=== PATIENT | male | born 1945 | race Caucasian/White ===

== ENCOUNTER 2017-08-10 14:53 | Inpatient (IN) | payer MEDICARE, BC ==
[2017-08-10] MEDS ORDERED: Enoxaparin Sodium 30 MG/0.3 ML SYRINGE ONE (15:40)
[2017-08-10] MEDS ORDERED: Enoxaparin Sodium 100 MG/ML SYRINGE ONE (15:40)
[2017-08-10] MEDS ORDERED: Acetaminophen 325 MG TAB PO PRN (16:01)
[2017-08-10] MEDS ORDERED: Ondansetron HCl/PF 4 MG/2 ML Vial IVP PRN (16:01)
[2017-08-10] MEDS ORDERED: Nitroglycerin 0.4 MG TAB (25 Tab Bottle) PO PRN (16:01)
[2017-08-10] MEDS ORDERED: Ondansetron ODT 4 MG TAB PO PRN (16:01)
[2017-08-10 16:17] LABS: Troponin I 2.615 ng/mL (< 0.028)
[2017-08-10 19:29] LABS: Critical Call Chem Troponin I RESULT DECREASING; Troponin I 2.559 ng/mL (< 0.028)
[2017-08-10] MEDS: Famotidine 20 MG TAB PO SCH (20:39)
[2017-08-10] MEDS: Sodium Chloride 0.9% 1,000 ML IV SCH (20:39)
[2017-08-10] MEDS: Oseltamivir 75 MG CAP PO SCH (20:40)
[2017-08-10 21:18] VITALS: BMI 35.1
[2017-08-11] MEDS ORDERED: Diabetic Tussin 200 MG/10 ML UDCUP PO SCH (04:30)
[2017-08-11 06:05] LABS: Anion Gap 14 mmol/L (10-20); BUN (Urea Nitrogen) 18 mg/dL (8.4-25.7); Calc. Creatinine Clearance 118 mL/min (70-130); Carbon Dioxide 20 mmol/L (23-31); Chloride 104 mmol/L (98-107); Estimated GFR-MDRD 80; Glucose 108 mg/dL (83-110); Potassium 3.6 mmol/L (3.5-5.1); Sodium 134 mmol/L (136-145)
--- NOTE | 2017-08-11 06:51 | HP ---
CHIEF COMPLAINT: Generalized body weakness. HISTORY OF PRESENT ILLNESS: This is a 72-year-old gentleman, who is a very poor historian, presenting here with 2 to 3 days history of generalized body weakness to the point where he was having some difficulty getting into his vehicle. The patient did have some cough with productive sputum. Denies any sick contact. The patient presented to ER, where the initial evaluation did reveal patient has influenza. The patient denies most recent x-rays, further investigation was reviewed, elevated troponin at 3.6. Based on all these findings, decision made to admit this patient for further cardiac workup as well as flu treatment. PAST MEDICAL HISTORY: The patient claim not to have any medical history. The patient seems to be having some Afib FAMILY HISTORY: not significantly related to the presenting illness_ SOCIAL HISTORY: No alcohol, no tobacco, no illicit drug use. PHYSICAL EXAMINATION: GENERAL: On examination today, the patient was found not to be in any respiratory distress and noted with the following vital signs. VITAL SIGNS: Temperature 100.4, pulse 89, respiratory rate 20, O2 sat 93% with blood pressure 152/72. HEENT: Unremarkable with moist oral mucosa. NECK: Supple. CARDIOVASCULAR: First and second heart sounds were heard. DIGESTIVE: Revealed a benign abdomen with positive bowel sounds LYMPHATICS: No peripheral lymphadenopathy. IMPRESSION 1 Influenza 2-Afib PLAN: 1. The patient has been admitted to the telemetry. 2. Cardiac enzyme evaluation. 3. Cardiology consultation. 4. Tamiflu treatment for the treatment of flu. 5. Further management to be dependent on the clinical course. [facility]
[2017-08-11 07:09] LABS: Band 3 % (5-11); Eosinophils 1 % (0-10); Hemoglobin 14.1 g/dL (14.0-18.0); Lymphocytes 6 % (21-51); MDiff Complete? YES; Mean Corpuscular HGB CONC 34.4 g/dL (32.0-36.0); Mean Corpuscular Hemoglobin 34.1 pg (27.0-31.0); Mean Platelet Volume 8.7 fL (7.4-10.4); Monocytes 5 % (0-10); Neutrophil 85 % (42-75); Platelet Count 138 thou/uL (130-400); RBC Distribution Width 12.2 % (11.5-14.5); Red Blood Cell (RBC) Count 4.14 mill/uL (4.70-6.10); White Blood Cell (WBC) Count 6.1 thou/uL (4.8-10.8)
[2017-08-11] MEDS: Famotidine 20 MG TAB PO SCH ×2 (08:55→21:18)
[2017-08-11] MEDS: Oseltamivir 75 MG CAP PO SCH ×2 (08:55→21:18)
[2017-08-11] MEDS: Aspirin 325 MG TAB PO SCH (08:55)
[2017-08-11] MEDS: Sodium Chloride 0.9% 1,000 ML IV SCH ×2 (08:56→21:20)
[2017-08-11] MEDS ORDERED: Enoxaparin Sodium 40 MG/0.4 ML SYRINGE SC SCH (09:00)
[2017-08-11] MEDS ORDERED: Prevnar 13-Val Conj/PF 0.5 ML SYRINGE IM ONE (09:00)
--- NOTE | 2017-08-11 15:48 | EKG ---
Test Reason : Blood Pressure : / mmHG Vent. Rate : 093 BPM Atrial Rate : 127 BPM P-R Int : 000 ms QRS Dur : 140 ms QT Int : 418 ms P-R-T Axes : 000 054 024 degrees QTc Int : 519 ms Atrial fibrillation Right bundle branch block Abnormal ECG Confirmed by HUEY IVERSON MD ([id number]), newspaper managing editor ANDREW PARIS ([id number]) on 08/11/2017 3:47:58 PM Referred By: Confirmed By:HUEY IVERSON MD
--- NOTE | 2017-08-11 17:42 | PDOC.PN ---
- Subjective Encounter Start Date: 08/11/17 Encounter Start Time: 17:40 Subjective: Seen and examined feeling better c/o his sinusitis - Objective Vital Signs & Weight: Vital Signs (12 hours) Temp Pulse Resp BP Pulse Ox 08/11/17 15:45 99.0 F 74 18 110/71 93 L 08/11/17 12:20 97.9 F 85 16 113/65 91 L 08/11/17 08:53 100.7 F H 73 18 132/65 92 L Weight Weight 259 lb I&O: 08/10/17 08/11/17 08/12/17 06:59 06:59 06:59 Intake Total 840 1143 Output Total 850 800 Balance -10 343 Result Diagrams: 08/11/17 04:02 08/11/17 04:02 Phys Exam - Physical Examination Constitutional: NAD HEENT: PERRLA, moist MMs, sclera anicteric, TM's clear Neck: no nodes, no JVD, supple, full ROM Respiratory: no wheezing, no rales, no rhonchi, clear to auscultation bilateral Cardiovascular: RRR, no significant murmur, no rub Gastrointestinal: soft, non-tender, no distention, positive bowel sounds Musculoskeletal: no edema, pulses present Dx/Plan (1) Influenza A Code(s): J10.1 - FLU DUE TO OTH IDENT INFLUENZA VIRUS W OTH RESP MANIFEST Status: Acute (2) Paroxysmal A-fib Code(s): I48.0 - PAROXYSMAL ATRIAL FIBRILLATION Status: Acute (3) Sinusitis Code(s): J32.9 - CHRONIC SINUSITIS, UNSPECIFIED Status: Acute - Plan plan discussed w/ family, PT/OT, social sciences research scientist, respiratory therapy Awaiting Cardiology eval -: Dispo planning * .
--- NOTE | 2017-08-11 18:21 | CON ---
DATE OF CONSULTATION: 08/11/2017 The patient is a 72-year-old gentleman who presented for evaluation of weakness and was noted to have abnormal cardiac enzymes. The patient has no previous cardiac history. He states that a few days ago he had a fall in his tractor. He subsequently developed weakness and felt lightheaded. The patient reported having myalgias. The patient denied having any fever or chills. The patient denied having any chest discomfort. PAST MEDICAL HISTORY: None PAST SURGICAL HISTORY: Hand surgery. SOCIAL HISTORY: He is a nonsmoker. FAMILY HISTORY: There is a positive family history of heart disease. Father had a myocardial infarction. MEDICATIONS: None ALLERGIES: No known drug allergies. REVIEW OF SYSTEMS: Ten-point system otherwise unremarkable. No history of easy bruising or bleeding, bright red blood per rectum, hematuria. PHYSICAL EXAMINATION: GENERAL: Obese gentleman in no acute distress with a blood pressure of 113/65. NECK: No jugular venous distention. LUNGS: Coarse breath sounds bilateral. HEART: Regular rate and rhythm, normal S1, S2. ABDOMEN: Distended. EXTREMITIES: Showed mild edema. SKIN: Warm and dry. NEUROLOGIC: Nonfocal. VASCULAR: Radial pulses are 2+. LABORATORY: Sodium 134, potassium 3.6, chloride 104, bicarbonate 20, BUN 18, creatinine 0.93, glucose is 108. CPK-MB is 2.559. White blood cell count 6.1, hemoglobin 14.1, hematocrit 41.0 and his platelets are 138. His EKG reveals him to have normal sinus rhythm with a right bundle branch block. IMPRESSION: 1. Non-Q-wave myocardial infarction. 2. Influenza. 3. Obesity. PLAN: This gentleman presents with a non-Q-wave myocardial infarction. This may be secondary to demand ischemia. The patient will need to undergo further evaluation including possible stress testing or an invasive evaluation at this time. The patient will be treated with aspirin, Lovenox, beta jame, and lipid lowering medication. We will check the patient's echocardiogram. VICKY
[2017-08-11] MEDS ORDERED: Cetirizine HCl 10 MG TAB PO SCH (21:00)
[2017-08-11] MEDS ORDERED: Metoprolol Tartrate 25 MG TAB PO SCH (21:00)
[2017-08-11] MEDS: Loratadine 10 MG TAB PO SCH (21:17)
[2017-08-11] MEDS: Atorvastatin Calcium 40 MG TAB PO SCH (21:18)
[2017-08-11] MEDS: Enoxaparin Sodium 120 MG/0.8 ML SYRINGE SC SCH (21:18)
[2017-08-11 22:24] LABS: Hemoglobin 13.2 g/dL (14.0-18.0); Platelet Count 138 thou/uL (130-400)
--- NOTE | 2017-08-12 07:33 | PDOC.PN ---
- Subjective Encounter Start Date: 08/12/17 Encounter Start Time: 07:31 Subjective: Seen and examined feeling better - Objective Vital Signs & Weight: Vital Signs (12 hours) Temp Pulse Resp BP Pulse Ox 08/12/17 04:00 98.7 F 72 20 128/60 96 08/11/17 20:30 99.4 F 76 18 92 L Weight Weight 261 lb I&O: 08/11/17 08/12/17 08/13/17 06:59 06:59 06:59 Intake Total 840 2403 Output Total 850 1700 Balance -10 703 Result Diagrams: 08/11/17 22:16 08/11/17 22:16 Phys Exam - Physical Examination Constitutional: NAD HEENT: PERRLA, moist MMs, sclera anicteric, TM's clear, oral pharynx no lesions Neck: no nodes, no JVD, supple, full ROM Respiratory: no wheezing, no rales, no rhonchi, clear to auscultation bilateral Cardiovascular: RRR, no significant murmur, no rub Gastrointestinal: soft, non-tender, no distention, positive bowel sounds Musculoskeletal: no edema, pulses present Dx/Plan (1) Influenza A Code(s): J10.1 - FLU DUE TO OTH IDENT INFLUENZA VIRUS W OTH RESP MANIFEST Status: Acute (2) Paroxysmal A-fib Code(s): I48.0 - PAROXYSMAL ATRIAL FIBRILLATION Status: Acute (3) Sinusitis Code(s): J32.9 - CHRONIC SINUSITIS, UNSPECIFIED Status: Acute (4) Non Q wave myocardial infarction Code(s): I21.4 - NON-ST ELEVATION (NSTEMI) MYOCARDIAL INFARCTION Status: Acute - Plan plan discussed w/ family, continue antibiotics, PT/OT, medical social consultant, respiratory therapy Cardiology yet to decide between stress test vs cath -: Continue Tamiflu -: D/c ivf -: Dispo planning depending on the cardiology decision * .
[2017-08-12] MEDS ORDERED: Enoxaparin Sodium 120 MG/0.8 ML SYRINGE SC SCH (09:00)
[2017-08-12] MEDS: Aspirin 325 MG TAB PO SCH (09:05)
[2017-08-12] MEDS: Famotidine 20 MG TAB PO SCH ×2 (09:06→20:01)
[2017-08-12] MEDS: Oseltamivir 75 MG CAP PO SCH ×2 (09:06→20:01)
[2017-08-12] MEDS ORDERED: Communication Order-Pharmacy FS SCH (09:15)
[2017-08-12] MEDS: Enoxaparin Sodium 120 MG/0.8 ML SYRINGE SC SCH (09:42)
[2017-08-12] MEDS ORDERED: Enoxaparin Sodium 40 MG/0.4 ML SYRINGE SC SCH (09:45)
[2017-08-12] MEDS: Carvedilol 3.125 MG TAB PO SCH (17:51)
[2017-08-12] MEDS: Atorvastatin Calcium 40 MG TAB PO SCH (20:00)
[2017-08-12] MEDS: Loratadine 10 MG TAB PO SCH (20:01)
[2017-08-13] MEDS: Carvedilol 3.125 MG TAB PO SCH ×2 (05:09→17:43)
[2017-08-13] MEDS: Oseltamivir 75 MG CAP PO SCH ×2 (05:09→21:46)
[2017-08-13] MEDS: Famotidine 20 MG TAB PO SCH ×2 (05:09→21:46)
[2017-08-13] MEDS: Aspirin 325 MG TAB PO SCH (05:09)
[2017-08-13] MEDS ORDERED: Midazolam HCl 2 mg/2 ml Vial ONE ×2 (07:16→08:17)
[2017-08-13] MEDS ORDERED: Acetaminophen/Codeine 30-300mg Tablet PO PRN ×2 (07:44)
[2017-08-13] MEDS ORDERED: Nitroglycerin 0.4 MG TAB (25 Tab Bottle) SL PRN (07:44)
[2017-08-13] MEDS ORDERED: traMADol HCl 50 MG TAB PO PRN (07:44)
[2017-08-13] MEDS ORDERED: Sodium Chloride 0.9% 200 ML IV PRN (07:45)
[2017-08-13] MEDS ORDERED: Fentanyl 100 MCG/2 ML VIAL ONE (07:55)
[2017-08-13] MEDS ORDERED: Heparin 10,000 UNITS/1 ML VIAL ONE (08:17)
[2017-08-13] MEDS ORDERED: Clopidogrel Bisulfate 300 MG TAB ONE (08:59)
[2017-08-13] MEDS ORDERED: Nitroglycerin 100MG/250ML BOT 250 ML ONE (08:59)
[2017-08-13] MEDS ORDERED: Enoxaparin Sodium 40 MG/0.4 ML SYRINGE SC SCH (09:00)
--- NOTE | 2017-08-13 13:43 | PDOC.PN ---
- Subjective Encounter Start Date: 08/13/17 Encounter Start Time: 13:41 Subjective: Seen and examined with no new complaint - Objective Vital Signs & Weight: Vital Signs (12 hours) Temp Pulse Resp BP BP Pulse Ox 08/13/17 05:09 145/75 H 08/13/17 04:00 97.6 F 69 18 112/76 96 Weight Weight 257 lb I&O: 08/12/17 08/13/17 08/14/17 06:59 06:59 06:59 Intake Total 2403 1680 Output Total 1700 775 Balance 703 905 Result Diagrams: 08/11/17 22:16 08/11/17 22:16 Phys Exam - Physical Examination Constitutional: NAD HEENT: PERRLA, moist MMs, sclera anicteric, TM's clear Neck: no nodes, no JVD, supple, full ROM Respiratory: no wheezing, no rales, no rhonchi, clear to auscultation bilateral Cardiovascular: RRR, no significant murmur, no rub Gastrointestinal: soft, non-tender, no distention, positive bowel sounds Dx/Plan (1) Influenza A Code(s): J10.1 - FLU DUE TO OTH IDENT INFLUENZA VIRUS W OTH RESP MANIFEST Status: Acute (2) Paroxysmal A-fib Code(s): I48.0 - PAROXYSMAL ATRIAL FIBRILLATION Status: Acute (3) Sinusitis Code(s): J32.9 - CHRONIC SINUSITIS, UNSPECIFIED Status: Acute (4) Non Q wave myocardial infarction Code(s): I21.4 - NON-ST ELEVATION (NSTEMI) MYOCARDIAL INFARCTION Status: Acute - Plan plan discussed w/ family, continue antibiotics, home health care social worker Cardiac catherisation today -: Disposition will be dependent on the cath result * .
[2017-08-13] MEDS: Guaifenesin DM 100-10/5 ML UDCUP PO PRN (14:40)
[2017-08-13] MEDS ORDERED: Iopamidol 370 76% 50 ML VIAL FS ONE (17:22)
[2017-08-13] MEDS ORDERED: Iopamidol 370 76% 100 ML VIAL ONE (17:22)
[2017-08-13] MEDS: Atorvastatin Calcium 40 MG TAB PO SCH (21:45)
[2017-08-13] MEDS: Loratadine 10 MG TAB PO SCH (21:46)
[2017-08-13 22:39] LABS: Hemoglobin 12.4 g/dL (14.0-18.0); Platelet Count 131 thou/uL (130-400)
[2017-08-14] MEDS: Carvedilol 3.125 MG TAB PO SCH (08:01)
[2017-08-14] MEDS: Famotidine 20 MG TAB PO SCH (08:01)
[2017-08-14] MEDS: Oseltamivir 75 MG CAP PO SCH (08:01)
[2017-08-14] MEDS ORDERED: Clopidogrel Bisulfate 75 MG TAB PO SCH (09:00)
[2017-08-14] MEDS: Guaifenesin DM 100-10/5 ML UDCUP PO PRN (09:15)
[2017-08-14 12:34] VITALS: TEMP 98
[2017-08-14 16:36] VITALS: BP 133/61
[2017-08-14] MEDS ORDERED: Carvedilol 6.25 MG TAB PO SCH (17:00)
[2017-08-14] MEDS ORDERED: Ramipril 5 MG CAP PO SCH (21:00)
== END 2017-08-14 16:23 | disposition home or self-care (01) | DRG 247 ==
LOC: ERS 14:53 → ERHOLD 16:10 → 2NO 20:22
PROVIDERS: ADMIT Internal Medicine Nephrology; ATTEND Internal Medicine Nephrology
PROC: 027036Z Dilation of Coronary Artery, One Artery with Three Drug-eluting Intraluminal Devices, Percutaneous Approach (ICD-10-PCS; principal; 2017-08-13)
PROC: 4A023N7 Measurement of Cardiac Sampling and Pressure, Left Heart, Percutaneous Approach (ICD-10-PCS; 2017-08-13)
PROC: B2111ZZ Fluoroscopy of Multiple Coronary Arteries using Low Osmolar Contrast (ICD-10-PCS; 2017-08-13)
PROC: B2151ZZ Fluoroscopy of Left Heart using Low Osmolar Contrast (ICD-10-PCS; 2017-08-13)
DX: I21.4 Non-ST elevation (NSTEMI) myocardial infarction (principal); I48.0 Paroxysmal atrial fibrillation; J10.1 Influenza due to other identified influenza virus with other respiratory manifestations; E66.9 Obesity, unspecified; Z68.35 Body mass index [BMI] 35.0-35.9, adult; I25.10 Atherosclerotic heart disease of native coronary artery without angina pectoris
CPT/HCPCS: 36415; 80048; 82565; 85014; 85018; 85025; 85049; 85347; 92928; 93005; 93010; 93306; 93458; 93798; 94760; 96372; 99152; C1725; C1769; C1874; C9600; J1644; J1650; J2250; J3010; Q0162

== ENCOUNTER 2017-11-01 10:37 | Day surgery (SDC) | payer MEDICARE, BC ==
[2017-10-31 15:50] VITALS: BMI 35.5
[2017-11-01] MEDS ORDERED: Ketamine 50 MG/ML VIAL ONE (14:00)
[2017-11-01] MEDS ORDERED: PHENYLEPHRINE-NS 100 MCG/ML 10 ML SYRINGE ONE (14:07)
[2017-11-01] MEDS ORDERED: PROPOFOL 200 MG/20 ML VIAL ONE (14:07)
--- NOTE | 2017-11-01 15:38 | ECHO ---
TRANSESOPHAGEAL ECHOCARDIOGRAM: DATE OF PROCEDURE: 11/01/17 INDICATION: 72-year-old gentleman with paroxysmal atrial fibrillation. DESCRIPTION OF PROCEDURE: The patient was taken to the PACU. The patient was sedated by anesthesiology. A transesophageal probe was placed in the distal esophagus and stomach. Echocardiographic images were obtained. The transesophageal probe was removed. FINDINGS: 1. Mild decrease in left systolic function. 2. Biatrial enlargement. 3. Mild mitral regurgitation. 4. Mild tricuspid regurgitation. 5. No thrombus noted in left atrial appendage. 6. Atherosclerotic debris in the descending. IMPRESSION: No formed thrombus in left atrial appendage.
--- NOTE | 2017-11-01 16:35 | OP ---
PROCEDURE: Electrical cardioversion. HISTORY OF PRESENT ILLNESS: A 72-year-old gentleman with paroxysmal atrial fibrillation. DESCRIPTION OF PROCEDURE: The patient was taken to the PACU, the patient was sedated by Anesthesiyvonne fofana. The patient was shocked with 200 joules of synchronized electricity. The patient converted to n ormal sinus rhythm. IMPRESSION: Successful electrocardioversion.
--- NOTE | 2017-11-01 21:02 | CON ---
DATE OF CONSULTATION: 11/01/2017 REASON FOR CONSULTATION: Atrial fibrillation. PHYSICIAN REQUESTING CONSULTATION: Renan Euceda M.D. HISTORY OF PRESENT ILLNESS: Eduar Fernádnez is a 72-year-old gentleman. He has a known history of cor onary disease, moderate cardiomyopathy with ejection fraction of 30%, previous myocardial infarction and coronary arterial disease status post stent placement in August. He was brought in electively f or a VIVIEN and cardioversion. He was found to be in atrial fibrillation yesterday. I was asked to see him because of his comorbidities making long-term antiarrhythmic suppression suboptimal. He is not acutely aware of his atrial fibrillation, although it is unclear how long he has been out of rhythm l ikely would have been less than 3 months since this would have likely been identified during his sten t placement in August. CURRENT MEDICATIONS: Aspirin 81 mg a day, amantadine 200 mg every day, carvedilol 6.25 mg b.i.d., cl opidogrel 75 mg every day, ramipril 5 mg every day, atorvastatin 80 mg every day, Eliquis 5 mg b.i.d. ALLERGIES: He has no known drug allergies. FAMILY HISTORY: Significant for possible stroke and hypertension. SOCIAL HISTORY: The patient does not smoke, drink heavily, or use illicit drugs. He lives just outs [facility], [place] the [place], [place]. REVIEW OF SYSTEMS: The following complete review of systems was negative, unless otherwise mentioned in the HPI or below: Constitutional: Weight loss or gain, sense of well-being, ability to conduct usual activities, exerc ise tolerance. Skin/Breast: Rash, itching, changes in hair growth or loss, nail changes, breast lumps, tenderness, swelling, nipple discharge. Eyes: Vision, double vision, tearing, blind spots, pain. ENT/Mouth: Headaches (location, time of onset, duration, precipitating factors), vertigo, lightheadedness, injury. Vision, double vision, tearing, blind spots, pain, nose b leeding, colds, obstruction, discharge, dental difficulties, gingival bleeding, dentures, neck stiffn ess, pain, tenderness, masses in thyroid or other areas Cardiovascular: Precordial pain, substernal distress, palpitations, syncope, dyspnea on exertion, or thopnea, nocturnal paroxysmal dyspnea, edema, cyanosis, hypertension, heart murmurs, varicosities, ph lebitis, claudication. Respiratory: Pain, shortness of breath, wheezing, stridor, cough, hemoptysis, fever or night sweats Gastrointestinal: Poor appetite, dysphagia, indigestion, abdominal pain, heartburn, eructation, naus ea, vomiting, hematemesis, jaundice, constipation, or diarrhea, abnormal stools (daron-colored, tarry, bloody, greasy, foul smelling), flatulence, hemorrhoids, recent changes in bowel habits. Genitourinary: Urgency, frequency, dysuria, nocturia, hematuria, polyuria, oliguria, unusual (or ralph nge in) color of urine, stones, hesitancy, change in size of stream, dribbling, acute retention or in continence, libido, potency. Musculoskeletal: Pain, swelling, redness or heat of muscles or joints, limitation, of motion, muscular weakness, atrophy, cramps. Neurologic/Psychiatric: Convulsions, paralyses, tremor, incoordination, parasthesias, difficulties w ith memory of speech, sensory or motor disturbances, or muscular coordination (ataxia, tremor), emoti onal problems, anxiety, depression, previous psychiatric care, unusual perceptions, hallucinations. Allergy/Immunologic: Skin rash, anemia, bleeding tendency, polydipsia, polyuria, intolerance to heat or cold. PHYSICAL EXAMINATION: VITAL SIGNS: Blood pressure 130/80, pulse is 70 and regular, respirations 18. NECK: Supple. HEART: Demonstrates regular rate. LUNGS: Clear to auscultation. ABDOMEN: Soft. EXTREMITIES: Without edema. SKIN: Warm and dry. NEUROLOGIC: Nonfocal. LABORATORY AND X-RAY FINDINGS: Electrocardiogram demonstrates sinus rhythm with complete right bundl e-branch block morphology. Telemetry prior to his cardioversion demonstrates atrial fibrillation or possibly atypical flutter with rapid ventricular response. Ventricular response is around 145 beats a minute. MEDICAL DECISION MAKING: I had a 15-minute discussion with Mr. Fernández and his family. We talked abou t all treatment options and alternatives. At this point, I think we can start him on Multaq on the s hort term, termite treater helper with his comorbidities antiarrhythmic suppression would probably be suboptimal a s it has a higher risk of proarrhythmia. We did talk in detail about ablative therapy and he is cont emplating that is a possibility. IMPRESSION: 1. Atrial fibrillation, technically persistent but likely transition within the last 3 months, this was with profound rapid ventricular response. 2. Underlying right bundle-branch block. 3. Underlying coronary disease, status post stent placement in August. 4. Hypertension. 5. CHADS-VASc score of 4 (age, hypertension, vascular disease and LV dysfunction). RECOMMENDATIONS: 1. Continue with triple anticoagulant therapy due to his recent stents and recently diagnosed atrial fibrillation. 2. We will await his decision regarding ablative therapy.
--- NOTE | 2017-11-14 22:51 | EKG ---
Test Reason : PREOP VIVIEN/CARDIOVERS Blood Pressure : / mmHG Vent. Rate : 125 BPM Atrial Rate : 053 BPM P-R Int : 000 ms QRS Dur : 152 ms QT Int : 390 ms P-R-T Axes : 000 023 007 degrees QTc Int : 562 ms Atrial fibrillation with rapid ventricular response Right bundle branch block Abnormal ECG When compared with ECG of 13-AUG-2017 09:33, Atrial fibrillation has replaced Sinus rhythm Vent. rate has increased BY 54 BPM Questionable change in QRS axis Confirmed by Bhavana HECTOR ([id number]) on 11/14/2017 10:51:13 PM Referred By: SHELLY Confirmed By:Bhavana HECTOR
--- NOTE | 2017-11-14 22:52 | EKG ---
Test Reason : POST VIVIEN/CARDIOVERSI Blood Pressure : / mmHG Vent. Rate : 066 BPM Atrial Rate : 066 BPM P-R Int : 162 ms QRS Dur : 162 ms QT Int : 482 ms P-R-T Axes : 009 026 008 degrees QTc Int : 505 ms Sinus rhythm with marked sinus arrhythmia Right bundle branch block Abnormal ECG When compared with ECG of 01-NOV-2017 11:51, (Unconfirmed) Sinus rhythm has replaced Atrial fibrillation Vent. rate has decreased BY 59 BPM Confirmed by Bhavana HECTOR ([id number]) on 11/14/2017 10:52:14 PM Referred By: SHELLY Confirmed By:Bhavana HECTOR
== END 2017-11-01 17:03 | disposition home or self-care (01) ==
LOC: SDC 10:37
PROVIDERS: ATTEND Internal Medicine Cardiovascular Disease
PROC: 5A2204Z Restoration of Cardiac Rhythm, Single (ICD-10-PCS; principal; 2017-11-01)
PROC: B24BZZ4 Ultrasonography of Heart with Aorta, Transesophageal (ICD-10-PCS; 2017-11-01)
DX: I48.0 Paroxysmal atrial fibrillation (principal); I34.0 Nonrheumatic mitral (valve) insufficiency; I36.1 Nonrheumatic tricuspid (valve) insufficiency; I25.110 Atherosclerotic heart disease of native coronary artery with unstable angina pectoris; I10 Essential (primary) hypertension; I25.2 Old myocardial infarction; E78.2 Mixed hyperlipidemia; Z79.82 Long term (current) use of aspirin; Z79.01 Long term (current) use of anticoagulants; Z79.02 Long term (current) use of antithrombotics/antiplatelets; Z79.899 Other long term (current) drug therapy
CPT/HCPCS: 92960; 93005; 93010; 93312; J2704